=== PATIENT | male | born 1965 | race Hispanic/Latino ===

== ENCOUNTER 2024-09-26 15:59 | Emergency (ER) | payer BC, OTHER ==
[~2024-09-26] VITALS: Ht 167.6 cm; Wt 78.0 kg
[2024-09-26] MEDS ORDERED: KETOROLAC TROMETHAMINE 60 MG/2 ML VIAL ONE (19:13)
[2024-09-26] MEDS ORDERED: KETOROLAC TROMETHAMINE 30 MG/ML VIAL ONE (19:31)
[2024-09-26] MEDS: KETOROLAC TROMETHAMINE 60 MG/2 ML VIAL IM STA (19:33)
[2024-09-26 19:34] VITALS: PULSE 71; RESP 16; TEMP 100; O2SAT 98
[2024-09-26] MEDS: KETOROLAC TROMETHAMINE 30 MG/ML VIAL IM STA (19:34)
== END 2024-09-26 19:57 | disposition home or self-care (01) ==
LOC: ER 16:43
DX: M79.652 Pain in left thigh (principal); M25.552 Pain in left hip; Y93.E6 Activity, residential relocation; I12.0 Hypertensive chronic kidney disease with stage 5 chronic kidney disease or end stage renal disease; E11.22 Type 2 diabetes mellitus with diabetic chronic kidney disease; N18.6 End stage renal disease; Z99.2 Dependence on renal dialysis; I25.10 Atherosclerotic heart disease of native coronary artery without angina pectoris; E78.5 Hyperlipidemia, unspecified; Z95.1 Presence of aortocoronary bypass graft
CPT/HCPCS: 73552; 99283; J1885 ×2